=== PATIENT | male | born 1950 | race Caucasian/White ===

== ENCOUNTER 2019-04-05 08:46 | Day surgery (SDC) | payer MEDICARE, BC ==
[~2019-04-05] VITALS: Ht 182.9 cm; Wt 84.7 kg
[~2019-04-05 08:46] MED LIST: ALBU8.5H8 INH; BACITRACIN OINT 500U/GM, 15 GM ONE; BUPR150T73 PO; EPINEPHRINE 1 MG/ML, 1ML ONE; EPINEPHRINE TOPICAL SOLN 1 MG/ML, 30ML ONE; FLUORESCEIN SODIUM 500 MG/5 ML ONE; FLUT1DIS3 INH; GLAT40SY INJ; IMMU4VIA SC; LIDOCAINE 1%, 20ML ONE; LOSA50TA14 PO; OXYMETAZOLINE NASAL SPRAY 0.05%, 15ML ONE; SERT100T PO; SILO4CAP PO; TAPE150T PO; TAPE50TA9 PO; budesonide NS
[2019-04-05] MEDS ORDERED: LACTATED RINGERS 1,000 ML IV SCH (09:22)
[2019-04-05] MEDS ORDERED: ACETAMINOPHEN 500 MG TABLET PO ONE (09:30)
[2019-04-05] MEDS ORDERED: GABAPENTIN 300 MG CAPSULE PO ONE (09:30)
[2019-04-05 09:47] VITALS: BP 135/82
[2019-04-05] MEDS ORDERED: FENTANYL PF 100 MCG/2ML ONE (09:58)
[2019-04-05 10:35] LABS: ALANINE AMINOTRANSFERASE 44 U/L (12-78); ALBUMIN 3.5 g/dL (3.4-5.0); ANION GAP 6 mmol/L (5-15); CALCIUM 8.4 mg/dL (8.5-10.1); CHLORIDE 110 mmol/L (98-107); CREATININE 1.37 mg/dL (0.7-1.3)
[2019-04-05 10:37] LABS: ALKALINE PHOSPHATASE 130 U/L (45-117); BILIRUBIN,TOTAL 0.5 mg/dL (0.2-1.0); TOTAL PROTEIN 6.8 g/dL (6.4-8.2)
[2019-04-05] MEDS ORDERED: ROCURONIUM 10 MG/ML,10ML ONE (10:48)
[2019-04-05] MEDS ORDERED: GLYCOPYRROLATE 0.2MG/1ML, 5ML ONE (10:48)
[2019-04-05] MEDS ORDERED: DEXAMETHASONE 4 MG/ML, 1ML ONE (10:48)
[2019-04-05] MEDS ORDERED: NEOSTIGMINE 1 MG/ML, 10ML ONE (10:48)
[2019-04-05] MEDS ORDERED: ONDANSETRON 2MG/ML, 2ML ONE (10:48)
[2019-04-05] MEDS ORDERED: CEFAZOLIN 1,000 MG ONE (10:48)
[2019-04-05] MEDS ORDERED: PROPOFOL 10 MG/ML, 20ML ONE (10:48)
[2019-04-05] MEDS ORDERED: PROMETHAZINE 25 MG/ML, 1ML IV PRN (11:00)
[2019-04-05] MEDS ORDERED: MEPERIDINE/PF 25MG/0.5ML IVPush PRN (11:00)
[2019-04-05] MEDS ORDERED: ALBUTEROL SULFATE 2.5 MG/3 ML NPPB PRN (11:00)
[2019-04-05] MEDS ORDERED: OXYcodone 5 MG/5 ML ORAL.SOL UDC PO PRN (11:00)
[2019-04-05] MEDS ORDERED: DIPHENHYDRAMINE 50 MG/ML, 1ML IVPush PRN (11:00)
[2019-04-05] MEDS ORDERED: LABETALOL 5MG/ML, 20ML IV PRN (11:00)
[2019-04-05] MEDS ORDERED: hydrALAzine 20 MG/ML, 1ML IV PRN (11:00)
[2019-04-05] MEDS ORDERED: HYDROmorphone 2 MG/ML, 1ML IVPush PRN (11:00)
[2019-04-05] MEDS ORDERED: FENTANYL PF 100 MCG/2ML IV PRN (11:00)
[2019-04-05] MEDS ORDERED: METOPROLOL 1 MG/ML, 5ML IV PRN (11:00)
[2019-04-05] MEDS ORDERED: PROCHLORPERAZINE 5 MG/ML, 2ML IV PRN (11:00)
[2019-04-05] MEDS ORDERED: HALOPERIDOL 5 MG/ML IV PRN (11:00)
[2019-04-05] MEDS ORDERED: BACITRACIN 50,000 UNIT ONE (12:01)
[2019-04-05] MEDS ORDERED: BACITRACIN 50,000 UNIT IRRIG ONE (12:10)
[2019-04-05] MEDS ORDERED: OXYcodone 5 MG/5 ML ORAL.SOL UDC ONE (13:19)
== END 2019-04-05 15:30 | disposition home or self-care (01) ==
LOC: OUT 08:46
PROVIDERS: ATTEND Otolaryngology
DX: J01.00 Acute maxillary sinusitis, unspecified (principal); J32.0 Chronic maxillary sinusitis; J33.8 Other polyp of sinus; J32.4 Chronic pansinusitis; D83.9 Common variable immunodeficiency, unspecified; E88.01 Alpha-1-antitrypsin deficiency; J45.909 Unspecified asthma, uncomplicated; I10 Essential (primary) hypertension; G47.33 Obstructive sleep apnea (adult) (pediatric); Z88.0 Allergy status to penicillin; Z88.8 Allergy status to other drugs, medicaments and biological substances; Z79.899 Other long term (current) drug therapy; Z79.1 Long term (current) use of non-steroidal anti-inflammatories (NSAID); Z85.828 Personal history of other malignant neoplasm of skin; Z83.3 Family history of diabetes mellitus; Z82.3 Family history of stroke; Z72.89 Other problems related to lifestyle
CPT/HCPCS: 30520; 31257; 31267; 31276; 36415; 80053; 87102; 88304; 88305; 88311; 93005; J0171; J0690; J1100; J2405; J2704; J2710; J3010; J7120